=== PATIENT | male | born 1975 | race Caucasian/White ===

== ENCOUNTER 2019-12-06 17:01 | Emergency (ER) | payer MEDICARE, OTHER, MEDICAID ==
[~2019-12-06] VITALS: Ht 180.3 cm; Wt 102.1 kg
[~2019-12-06 17:01] MED LIST: AMOXICILLIN500 M1 PO; ATIVAN1 MG PO; CARBAMAZEPINE200 M2 PO; KEPPRA 500 MG500 M1 PO; LAMOTRIGINE100 MG PO; NEURONTIN 300300 M1 PO; NORCO 5-325 TA1 EACH PO; RESTORIL15 MG PO; VIMPAT150 MG PO; ZOLOFT50 MG PO; ZONEGRAN100 MG PO
[2019-12-06] MEDS ORDERED: AUGMENTIN 500-1 EACH PO (18:07)
[2019-12-06] MEDS ORDERED: IBUPROFEN 800800 MG PO (18:07)
[2019-12-06 18:33] VITALS: BP 113/72
== END 2019-12-06 18:34 | disposition home or self-care (01) ==
LOC: M.ERS 17:01
DX: S61.202A Unspecified open wound of right middle finger without damage to nail, initial encounter (principal); F17.210 Nicotine dependence, cigarettes, uncomplicated; X58.XXXA Exposure to other specified factors, initial encounter; Y93.89 Activity, other specified; Y92.89 Other specified places as the place of occurrence of the external cause; Y99.8 Other external cause status